=== PATIENT | male | born 1990 ===

== ENCOUNTER 2018-06-09 17:17 | Emergency (ER) | payer OTHER ==
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
[2018-06-09 17:52] LABS: ACETAMINOPHEN < 10 ug/mL
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
[2018-06-09 17:53] LABS: ANION GAP 15.2; CHLORIDE,CL 108 mmol/L (101-111); SODIUM,NA 138 mmol/L (135-145)
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
[2018-06-09] MEDS ORDERED: Lidocaine 1% 30 ML SDV INJECT ONE (18:22)
[2018-06-09] MEDS ORDERED: Diphtheria,Pertussis(Acell),Tetanus Vaccine 0.5 ML SDV IM ONE (18:22)
[2018-06-09] MEDS ORDERED: Bacitracin Oint 1 GM U/D Packet TOP ONE (19:22)
== END 2018-06-09 20:28 | disposition home or self-care (01) ==
LOC: DL.ED 17:17
DX: S06.0X9A Concussion with loss of consciousness of unspecified duration, initial encounter (principal); S02.2XXA Fracture of nasal bones, initial encounter for closed fracture; S02.19XB Other fracture of base of skull, initial encounter for open fracture; S00.12XA Contusion of left eyelid and periocular area, initial encounter; Y08.02XA Assault by strike by baseball bat, initial encounter
CPT/HCPCS: 12002; 12013; 36415; 70450; 70486; 72125; 73030; 80053; 80305; 81001; 85025; 90715; 99285; G0480

== ENCOUNTER 2020-12-06 09:41 | Emergency (ER) | payer OTHER ==
[2020-12-06] MEDS ORDERED: methylPREDNISolone Sodium Succinate 125 MG/2 ML SDV IM ONE (09:49)
--- NOTE | 2020-12-06 10:02 | EDM.PDOC ---
ED HPI GENERAL MEDICAL PROBLEM - General Chief Complaint: ENT Problem Stated Complaint: AMBULANCE Time Seen by Provider: 12/06/20 09:41 Source of Information: Reports: Patient, RN, RN Notes Reviewed History Limitations: Reports: No Limitations - History of Present Illness INITIAL COMMENTS - FREE TEXT/NARRATIVE: Tori is a 30 y/o male who presents to the ED via personal vehicle with complaints of neck and throat swelling and pain. The patient reports his symptoms began yesterday and have progressively worsened to the point he is unable to appropriately swallow his oral secretions due to swelling and pain. He denies recent illness, fever, shaking chills, headache, sinus congestion/pain, ear pressure/pain, chest pain, palpitations, shortness of breath, nausea, vomiting, or diarrhea. He does attest to transient cough, but feels it is due to difficulty swallowing his oral secretions. He has not taken any medications for his symptoms. He attests to smoking 1/4 pack of cigarettes per day; he denies alcohol or recreational drug use. Neck Pain Score (Numeric/FACES): 8 - Related Data Allergies Allergy/AdvReac Type Severity Reaction Status Date / Time No Known Allergies Allergy Verified 12/06/20 09:42 Home Meds: Home Meds . [No Known Home Meds] 06/09/18 [History] Past Medical History - Past Health History Medical/Surgical History: Denies Medical/Surgical History Social & Family History - Family History Family Medical History: No Pertinent Family History ED ROS ENT - Review of Systems Review Of Systems: Comprehensive ROS is negative, except as noted in HPI. ED EXAM, ENT - Physical Exam Exam: See Below Exam Limited By: No Limitations General Appearance: Alert, Mild Distress (Swollen, painful neck) Eye Exam: Bilateral Eye: EOMI, Normal Inspection, PERRL (3mm) Ears: Normal External Exam, Normal Canal, Hearing Grossly Normal, Normal TMs Nose: Normal Inspection, Normal Mucousa, No Blood Mouth/Throat: Normal Gums, Normal Lips, Muffled Voice, Pharyngeal Erythema (To left), Throat Pain, Throat Swelling (To left), Tonsillar Erythema (To left), Tonsillar Exudates (To left), Tonsillar Swelling (To left). No: Tongue Swelling, Uvular Deviation, Uvular Edema Head: Atraumatic, Normocephalic Neck: Limited Range of Motion (Due to swelling), Tender Lateral (To left anterior), Other (Swelling to left anterior neck) Respiratory/Chest: No Respiratory Distress, Lungs Clear, Normal Breath Sounds, No Accessory Muscle Use, Chest Non-Tender Cardiovascular: Normal Peripheral Pulses, Regular Rate, Rhythm, No Edema, No Gallop, No JVD, No Murmur, No Rub GI/Abdominal: Normal Bowel Sounds, Soft, Non-Tender, No Distention, No Abnormal Bruit, No Mass (Male) Exam: Deferred Rectal (Males) Exam: Deferred Back: Normal Inspection, Full Range of Motion Extremities: Normal Inspection, Normal Range of Motion, Non-Tender, No Pedal Edema, Normal Capillary Refill Neurological: Alert, Oriented, CN II-XII Intact, Normal Cognition, Normal Gait, No Motor/Sensory Deficits Psychiatric: Normal Affect, Normal Mood Skin: Warm, Dry, Intact, Normal Color, No Rash. No: Cyanosis, Ecchymosis, Erythema, Jaundice, Mottled, Pallor, Petechiae Course - Vital Signs Last Recorded V/S: Last Vital Signs Temp 98.3 F 12/06/20 09:43 Pulse 99 12/06/20 09:43 Resp 18 12/06/20 09:43 BP 116/80 12/06/20 09:43 Pulse Ox 99 12/06/20 09:43 - Orders/Labs/Meds Labs: Laboratory Tests 12/06/20 12/06/20 12/06/20 Range/Units 11:29 11:29 11:29 WBC 7.6 (5.0-10.0) 10^3/uL RBC 4.30 L (4.6-6.2) 10^6/uL Hgb 12.9 L D (14.0-18.0) g/dL Hct 37.4 L (40.0-54.0) % MCV 87.0 (80-100) fL MCH 30.0 (27.0-34.0) pg MCHC 34.5 (33.0-35.0) g/dL Plt Count 224 (150-450) 10^3/uL Neut % (Auto) 81.5 H (42.2-75.2) % Lymph % (Auto) 8.2 L (20.5-50.1) % [place] % (Auto) 9.3 H (2-8) % Eos % (Auto) 0.7 L (1.0-3.0) % Baso % (Auto) 0.3 (0.0-1.0) % Sodium 136 (136-145) mmol/L Potassium 3.3 L (3.5-5.1) mmol/L Chloride 96 L (98-107) mmol/L Carbon Dioxide 28 (21-32) mmol/L Anion Gap 15.3 H (7-13) mEq/L BUN 8 (7-18) mg/dL Creatinine 0.63 L (0.70-1.30) mg/dL Est Cr Clr Drug Dosing 162.86 mL/min Estimated GFR (MDRD) > 60 BUN/Creatinine Ratio 12.7 (No establ ref range) Glucose 101 H (70-99) mg/dL Lactic Acid 0.8 (0.4-2.0) mmol/L Calcium 8.0 L (8.5-10.1) mg/dL Total Bilirubin 1.3 H (0.2-1.0) mg/dL AST 74 H (15-37) U/L ALT 77 H (16-63) U/L Alkaline Phosphatase 144 H (46-116) U/L C-Reactive Protein 14.6 H (0.0-0.9) mg/dL Total Protein 7.2 (6.4-8.2) g/dL Albumin 3.2 L (3.4-5.0) g/dL Globulin 4.0 Albumin/Globulin Ratio 0.80 SARS-CoV-2 RNA (JAMES) (NEGATIVE) 12/06/20 Range/Units 13:06 WBC (5.0-10.0) 10^3/uL RBC (4.6-6.2) 10^6/uL Hgb (14.0-18.0) g/dL Hct (40.0-54.0) % MCV (80-100) fL MCH (27.0-34.0) pg MCHC (33.0-35.0) g/dL Plt Count (150-450) 10^3/uL Neut % (Auto) (42.2-75.2) % Lymph % (Auto) (20.5-50.1) % [place] % (Auto) (2-8) % Eos % (Auto) (1.0-3.0) % Baso % (Auto) (0.0-1.0) % Sodium (136-145) mmol/L Potassium (3.5-5.1) mmol/L Chloride (98-107) mmol/L Carbon Dioxide (21-32) mmol/L Anion Gap (7-13) mEq/L BUN (7-18) mg/dL Creatinine (0.70-1.30) mg/dL Est Cr Clr Drug Dosing mL/min Estimated GFR (MDRD) BUN/Creatinine Ratio (No establ ref range) Glucose (70-99) mg/dL Lactic Acid (0.4-2.0) mmol/L Calcium (8.5-10.1) mg/dL Total Bilirubin (0.2-1.0) mg/dL AST (15-37) U/L ALT (16-63) U/L Alkaline Phosphatase (46-116) U/L C-Reactive Protein (0.0-0.9) mg/dL Total Protein (6.4-8.2) g/dL Albumin (3.4-5.0) g/dL Globulin Albumin/Globulin Ratio SARS-CoV-2 RNA (JAMES) Negative (NEGATIVE) Meds: Medications Discontinued Medications Generic Name Dose Route Start Last Admin Trade Name Freq PRN Reason Stop Dose Admin Amoxicillin/Clavulanate Potassium 1 tab 12/06/20 13:02 12/06/20 13:20 Amoxicillin/Clavulanate K 875-125 Mg Tab PO 12/06/20 13:03 1 tab ONETIME ONE Administration Clindamycin Phosphate 600 mg/ 104 mls @ 200 mls/hr 12/06/20 12:49 12/06/20 13:20 Sodium Chloride IV 12/06/20 13:20 Not Given ONETIME ONE Iopamidol 100 ml 12/06/20 11:05 12/06/20 11:06 Iopamidol 612 Mg/Ml 100 Ml Bottle IVPUSH 12/06/20 11:06 75 ml ONETIME ONE Administration Methylprednisolone Sodium Succinate 125 mg 12/06/20 09:49 12/06/20 10:16 Methylprednisolone Sodium Succinate 125 Mg/2 Ml Sdv IM 12/06/20 09:50 125 mg ONETIME ONE Administration - Radiology Interpretation Free Text/Narrative:: [facility] Final Radiology Report Call: [phone] assistance Online chat: [email or web address] Name: TORI MALONEY Age: 30Years M Date: 12/06/2020 SSN: -- : 1990 Study: CT SOFT TISSUE NECK W CONT Requesting Physician: Dominique Hendricks Images: [phone] Addl Studies: Provided Clinical History: Swelling to left neck, extends into posterior oropharynx Contrast: With Contrast Medium: Isovue 300 Contrast Amount: 75 mL Contrast Method: Intravenous (IV) Page 1 of 2 PROCEDURE INFORMATION: Exam: CT Neck With Contrast Exam date and time: 12/06/2020 10:51 AM Age: 30 years old Clinical indication: Mass, lump, or swelling in neck; Left; Additional info: Swelling to left neck, extends into posterior oropharynx TECHNIQUE: Imaging protocol: Computed tomography images of the neck with contrast. Radiation optimization: All CT scans at this facility use at least one of these dose optimization techniques: automated exposure control; mA and/or kV adjustment per patient size (includes targeted exams where dose is matched to clinical indication); or iterative reconstruction. Contrast material: ISOVUE 300; Contrast volume: 75 ml; Contrast route: INTRAVENOUS (IV); COMPARISON: CT Max Facial Sinus wo Cont 06/09/2018 5:20 PM FINDINGS: Nasopharynx: Unremarkable. Oropharynx: There is enlargement noted of the left tonsillar pillar subtle enhancement but no evidence of a fluid collection. Soft tissue swelling and edema extends into the oropharynx with effacement of the left vallecular and mild displacement of the airway to the right. There is severe narrowing of the right piriform sinus. Hypopharynx: See "Soft tissues" finding. Larynx: Unremarkable. Normal epiglottis. Retropharyngeal space: Unremarkable. Submandibular/Parotid glands: Normal. Glands are normal in size. Thyroid: Normal. No enlarged or calcified nodules. Lymph nodes: Numerous lymph nodes are seen throughout the neck measuring up to 1 cm. Trachea: Visualized trachea is unremarkable. Lungs: Unremarkable as visualized. Bones/joints: Unremarkable. No acute fracture. Soft tissues: Inflammatory changes seen within the left submandibular soft tissues likely a cellulitis. IMPRESSION: 1. Enlargement of the left tonsillar pillar with edema extending as far inferiorly as the left piriform sinus subtotally effacing the piriformis sinus and effacing the left vallecular with subtle mass effect of the airway to the right. 2. Inflammatory changes in the left submandibular soft tissues. 3. No evidence of a fluid collection is present to suggest an abscess. 4. Numerous lymph nodes the largest which is cm. Thank you for allowing us to participate in the care of your patient. Dictated and Authenticated by: Bijan Bowman MD 12/06/2020 12:43 PM Central Time ([place] & [place]) - Re-Assessments/Exams Free Text/Narrative Re-Assessment/Exam: 12/06/20 Strep swab negative. Will obtain CT neck, soft tissues while labs pending. Case discussed with Dr. Simons, ENT provider at [facility], who recommends Medrol Dose pack, Augmentin PO, and a COVID swab. COVID swab negative. Findings of examination, lab work, imaging, and discussion with Dr. Simons reviewed with patient. Will treat with Augmentin and Medrol Dose pack. Discussed supportive cares as well as red flag signs and symptoms which would warrant immediate reevaluation. Patient verbalized understanding and agreement with the plan of care. Departure - Departure Time of Disposition: 13:51 Disposition: Home, Self-Care 01 Condition: Fair Clinical Impression: Tonsillitis - Discharge Information *PRESCRIPTION DRUG MONITORING PROGRAM REVIEWED*: Not Applicable *COPY OF PRESCRIPTION DRUG MONITORING REPORT IN PATIENT KAILEY: Not Applicable Instructions: Tonsillitis, [id number] Referrals: PCP,None [Primary Care Provider] - Forms: ED Department Discharge Additional Instructions: Rx: Augmentin Rx: Medrol Dose Pack 1.) Return to the emergency department with any worsening symptoms, especially with one day of antibiotics. 2.) You may take ibuprofen (Advil/Motrin) 400mg every six hours, as pain and swelling persists. You may also take acetaminophen (Tylenol) 650mg every six hours, as pain persists. You may stagger these medications so you are receiving a dose every three hours. 3.) You may drink cold drinks to help with swelling, ice chips, popsicles, etc... 4.) Follow up with your primary care provider regarding today's visit in 3-5 days.
[2020-12-06] MEDS ORDERED: Iopamidol 612 MG/ML 100 ML Bottle IVPUSH ONE (11:05)
[2020-12-06 12:03] LABS: ANION GAP 15.3 mEq/L (7-13); CHLORIDE,CL 96 mmol/L (98-107); SODIUM,NA 136 mmol/L (136-145)
--- NOTE | 2020-12-06 12:44 | CT ---
PROCEDURE INFORMATION: Exam: CT Neck With Contrast Exam date and time: 12/06/2020 10:51 AM Age: 30 years old Clinical indication: Mass, lump, or swelling in neck; Left; Additional info: Swelling to left neck, extends into posterior oropharynx TECHNIQUE: Imaging protocol: Computed tomography images of the neck with contrast. Radiation optimization: All CT scans at this facility use at least one of these dose optimization techniques: automated exposure control; mA and/or kV adjustment per patient size (includes targeted exams where dose is matched to clinical indication); or iterative reconstruction. Contrast material: ISOVUE 300; Contrast volume: 75 ml; Contrast route: INTRAVENOUS (IV); COMPARISON: CT Max Facial Sinus wo Cont 06/09/2018 5:20 PM FINDINGS: Nasopharynx: Unremarkable. Oropharynx: There is enlargement noted of the left tonsillar pillar subtle enhancement but no evidence of a fluid collection. Soft tissue swelling and edema extends into the oropharynx with effacement of the left vallecular and mild displacement of the airway to the right. There is severe narrowing of the right piriform sinus. Hypopharynx: See "Soft tissues" finding. Larynx: Unremarkable. Normal epiglottis. Retropharyngeal space: Unremarkable. Submandibular/Parotid glands: Normal. Glands are normal in size. Thyroid: Normal. No enlarged or calcified nodules. Lymph nodes: Numerous lymph nodes are seen throughout the neck measuring up to 1 cm. Trachea: Visualized trachea is unremarkable. Lungs: Unremarkable as visualized. Bones/joints: Unremarkable. No acute fracture. Soft tissues: Inflammatory changes seen within the left submandibular soft tissues likely a cellulitis. IMPRESSION: 1. Enlargement of the left tonsillar pillar with edema extending as far inferiorly as the left piriform sinus subtotally effacing the piriformis sinus and effacing the left vallecular with subtle mass effect of the airway to the right. 2. Inflammatory changes in the left submandibular soft tissues. 3. No evidence of a fluid collection is present to suggest an abscess. 4. Numerous lymph nodes the largest which is cm.
[2020-12-06] MEDS ORDERED: Clindamycin Phosphate 600 MG in Sodium Chloride 0.9% 100 ML IV ONE (12:49)
[2020-12-06] MEDS ORDERED: Amoxicillin/Clavulanate K 875-125 MG Tab PO ONE (13:02)
== END 2020-12-06 14:30 | disposition home or self-care (01) ==
LOC: DL.ED 09:41
DX: J03.90 Acute tonsillitis, unspecified (principal); F17.210 Nicotine dependence, cigarettes, uncomplicated; Z20.822 Contact with and (suspected) exposure to COVID-19
CPT/HCPCS: 36415; 70491; 80053; 83605; 85025; 86140; 87081; 87430; 87635; 96372; 99283; 99284; A9270; J2930; Q9967; U0002

== ENCOUNTER 2021-05-07 05:18 | Emergency (ER) | payer OTHER ==
--- NOTE | 2021-05-07 05:16 | EDM.PDOC ---
<Shivam Cerda - Last Filed: 05/07/21 06:41> ED HPI GENERAL MEDICAL PROBLEM - General Chief Complaint: Upper Extremity Injury/Pain Stated Complaint: SPLK - AMBULANCE Time Seen by Provider: 05/07/21 05:02 Source of Information: Reports: Patient History Limitations: Reports: No Limitations, Intoxication (Patient admits to "drinking a lot") - History of Present Illness INITIAL COMMENTS - FREE TEXT/NARRATIVE: This 30 yo male patient was brought to the ED by [facility] due to right forearm, wrist and hand pain. The patient reports he punched a window yesterday and got his hand slammed in a door today. The patient admits to drinking a lot of alcohol due to the pain in his right arm. The patient reports he has not done any drugs since he got out of rehab. Onset Date: 05/05/21 Duration: Day(s):, Constant Location: Reports: Upper Extremity, Right Quality: Reports: Ache, Sharp Severity: Severe Improves with: Reports: None Worsens with: Reports: None Context: Reports: Other Associated Symptoms: Reports: No Other Symptoms - Related Data Allergies Allergy/AdvReac Type Severity Reaction Status Date / Time No Known Allergies Allergy Verified 05/07/21 05:10 Home Meds: Home Meds . [No Known Home Meds] 06/09/18 [History] Past Medical History - Past Health History Medical/Surgical History: Denies Medical/Surgical History Social & Family History - Family History Family Medical History: No Pertinent Family History Review of Systems - Review of Systems Review Of Systems: Comprehensive ROS is negative, except as noted in HPI. ED EXAM, GENERAL - Physical Exam Exam: See Below Exam Limited By: No Limitations General Appearance: Alert, WD/WN, Moderate Distress Eye Exam: Bilateral Eye: EOMI, Normal Inspection, PERRL Ears: Normal External Exam, Normal Canal, Hearing Grossly Normal, Normal TMs Nose: Normal Inspection, Normal Mucosa, No Blood Throat/Mouth: Normal Inspection, Normal Lips, Normal Teeth, Normal Gums, Normal Oropharynx, Normal Voice, No Airway Compromise Head: Atraumatic, Normocephalic Neck: Normal Inspection, Supple, Non-Tender, Full Range of Motion Respiratory/Chest: No Respiratory Distress, Lungs Clear, Normal Breath Sounds, No Accessory Muscle Use, Chest Non-Tender Cardiovascular: Normal Peripheral Pulses, Regular Rate, Rhythm, No Edema, No Gallop, No JVD, No Murmur, No Rub GI/Abdominal: Normal Bowel Sounds, Soft, Non-Tender, No Organomegaly, No Distention, No Abnormal Bruit, No Mass (Male) Exam: Deferred Rectal (Males) Exam: Deferred Back Exam: Normal Inspection, Full Range of Motion, NT Extremities: Arm Pain (right forearm, wrist and hand pain) Neurological: Alert, Oriented, CN II-XII Intact Psychiatric: Normal Affect, Normal Mood Skin Exam: Warm, Dry, Intact, Normal Color, No Rash Lymphatic: No Adenopathy Course - Radiology Interpretation Free Text/Narrative:: [facility] Final Radiology Report Call: [phone] assistance Online chat: [email or web address] Name: TORI MALONEY Age: 30Years M Date: 05/07/2021 SSN: -- : 1990 Study: CR HAND COMP MIN 3V RT Requesting Physician: Shivam Cerda Images: 4 Addl Studies: Provided Clinical History: Right hand, wrist and forearm pain Contrast: Contrast Medium: Contrast Amount: Contrast Method: CONFIDENTIALITY STATEMENT This report is intended only for use by the referring physician, and only in accordance with law. If you received this in error, call [phone]. Page 1 of 1 PROCEDURE INFORMATION: Exam: XR Right Hand Exam date and time: 05/07/2021 5:40 AM Age: 30 years old Clinical indication: Other: No new trauma--muscle spasm; Additional info: Right hand, wrist and forearm pain TECHNIQUE: Imaging protocol: XR Right hand. Views: 3 or more views. COMPARISON: CR Forearm 2V Rt 05/07/2021 5:37 AM FINDINGS: Bones/joints: Old well-healed fracture of the 5th metacarpal bone. No acute fracture or dislocation. Soft tissues: Normal. IMPRESSION: 1. Old well-healed fracture of the 5th metacarpal bone 2. No acute fracture or dislocation. Thank you for allowing us to participate in the care of your patient. Dictated and Authenticated by: Warner Amezquita MD 05/07/2021 6:34 AM Central Time ([place] & [place]) [facility] Final Radiology Report Call: [phone] assistance Online chat: [email or web address] Name: TORI MALONEY Age: 30Years M Date: 05/07/2021 SSN: -- : 1990 Study: CR FOREARM 2V RT Requesting Physician: Shivam Cerda Images: 3 Addl Studies: Provided Clinical History: Right hand, wrist and forearm pain Contrast: Contrast Medium: Contrast Amount: Contrast Method: CONFIDENTIALITY STATEMENT This report is intended only for use by the referring physician, and only in accordance with law. If you received this in error, call [phone]. Page 1 of 1 PROCEDURE INFORMATION: Exam: XR Right Forearm Exam date and time: 05/07/2021 5:37 AM Age: 30 years old Clinical indication: Other: Pain--spasm; Additional info: Right hand, wrist and forearm pain TECHNIQUE: Imaging protocol: XR Right forearm. Views: 2 views. COMPARISON: No relevant prior studies available. FINDINGS: Bones/joints: Normal. Soft tissues: Normal. IMPRESSION: No acute findings. Thank you for allowing us to participate in the care of your patient. Dictated and Authenticated by: Warner Amezquita MD 05/07/2021 6:34 AM Central Time ([place] & [place]) Departure - Departure Disposition: Home, Self-Care 01 Clinical Impression: Arm pain Qualifiers: Laterality: right Qualified Code(s): M79.601 - Pain in right arm - Discharge Information Forms: ED Department Discharge Additional Instructions: Use tylenol and Ibuprofen for pain as needed. Ice and rest your injury. If any new symptoms or concerns develop contact your primary care facility or return to the ER. Sepsis Event Note (ED) - Evaluation Sepsis Screening Result: No Definite Risk <Alejandro Figueroa - Last Filed: 05/07/21 07:33> Course - Vital Signs Last Recorded V/S: Last Vital Signs Temp 99.1 F 05/07/21 05:08 Pulse 114 H 05/07/21 06:06 Resp 12 05/07/21 06:06 BP 158/96 H 05/07/21 06:06 Pulse Ox 98 12/19/21 06:06 - Orders/Labs/Meds Orders: Active Orders 24 hr Category Date Time Status DRUG SCREEN URINE BIORAD [URCHEM] Stat Lab 05/07/21 05:09 Ordered UA RFX LUDIN AND CULT IF INDIC [URIN] Urgent Lab 05/07/21 05:09 Ordered DME for Discharge [COMM] Urgent Oth 05/07/21 06:40 Ordered Labs: Laboratory Tests 05/07/21 05/07/21 Range/Units 05:15 05:15 WBC 5.9 (5.0-10.0) 10^3/uL RBC 4.93 (4.6-6.2) 10^6/uL Hgb 14.7 D (14.0-18.0) g/dL Hct 42.8 (40.0-54.0) % MCV 86.8 (80-100) fL MCH 29.8 (27.0-34.0) pg MCHC 34.3 (33.0-35.0) g/dL Plt Count 250 (150-450) 10^3/uL Neut % (Auto) 40.8 L (42.2-75.2) % Lymph % (Auto) 51.8 H (20.5-50.1) % [place] % (Auto) 6.7 (2-8) % Eos % (Auto) 0.0 L (1.0-3.0) % Baso % (Auto) 0.7 (0.0-1.0) % Sodium 141 (136-145) mmol/L Potassium 3.2 L (3.5-5.1) mmol/L Chloride 103 (98-107) mmol/L Carbon Dioxide 22 (21-32) mmol/L Anion Gap 19.2 H (7-13) mEq/L BUN 6 L (7-18) mg/dL Creatinine 0.77 (0.70-1.30) mg/dL Est Cr Clr Drug Dosing 137.73 mL/min Estimated GFR (MDRD) > 60 BUN/Creatinine Ratio 7.8 (No establ ref range) Glucose 105 H (70-99) mg/dL Calcium 8.4 L (8.5-10.1) mg/dL Total Bilirubin 0.4 (0.2-1.0) mg/dL AST 19 (15-37) U/L ALT 35 (16-63) U/L Alkaline Phosphatase 132 H (46-116) U/L Total Protein 7.9 (6.4-8.2) g/dL Albumin 4.1 (3.4-5.0) g/dL Globulin 3.8 Albumin/Globulin Ratio 1.1 Ethyl Alcohol 275 (0) mg/dL Meds: Medications Discontinued Medications Generic Name Dose Route Start Last Admin Trade Name Farhana PRN Reason Stop Dose Admin Hydromorphone HCl 0.5 mg 05/07/21 05:19 05/07/21 05:22 Hydromorphone 0.5 Mg/0.5 Ml Syringe IVPUSH 05/07/21 05:20 0.5 mg ONETIME ONE Administration Sodium Chloride 1,000 mls @ 999 mls/hr 05/07/21 05:17 05/07/21 05:22 Normal Saline IV 05/07/21 06:17 999 mls/hr .BOLUS ONE Administration Lorazepam 1 mg 05/07/21 05:47 Lorazepam 2 Mg/Ml Sdv IVPUSH 05/07/21 05:48 ONETIME ONE - Re-Assessments/Exams Free Text/Narrative Re-Assessment/Exam: 05/07/21 07:30 I assumed care from Shivam RICHTER at shift change. The pt is awake and alert and in no apparent distress. He would like to be discharged. I discussed his exam adn exray with him and informed him of the findings. Departure - Departure Time of Disposition: 07:31 Condition: Good - Discharge Information *PRESCRIPTION DRUG MONITORING PROGRAM REVIEWED*: Not Applicable *COPY OF PRESCRIPTION DRUG MONITORING REPORT IN PATIENT KAILEY: Not Applicable Sepsis Event Note (ED) - Focused Exam Vital Signs: Vital Signs Temp Pulse Resp BP Pulse Ox 05/07/21 06:06 114 H 12 158/96 H 98 05/07/21 05:59 100 05/07/21 05:55 88 L 05/07/21 05:54 112 H 80 L 05/07/21 05:08 99.1 F 128 H 28 H 158/98 H 97
[~2021-05-07 05:18] MED LIST: Sodium Chloride 0.9% 1,000 ML IV ONE
[2021-05-07] MEDS ORDERED: HYDROmorphone 0.5 MG/0.5 ML Syringe IVPUSH ONE (05:19)
[2021-05-07 05:43] LABS: ANION GAP 19.2 mEq/L (7-13); CHLORIDE,CL 103 mmol/L (98-107); SODIUM,NA 141 mmol/L (136-145)
[2021-05-07] MEDS ORDERED: LORazepam 2 MG/ML SDV IVPUSH ONE (05:47)
--- NOTE | 2021-05-07 06:34 | CR ---
PROCEDURE INFORMATION: Exam: XR Right Hand Exam date and time: 05/07/2021 5:40 AM Age: 30 years old Clinical indication: Other: No new trauma--muscle spasm; Additional info: Right hand, wrist and forearm pain TECHNIQUE: Imaging protocol: XR Right hand. Views: 3 or more views. COMPARISON: CR Forearm 2V Rt 05/07/2021 5:37 AM FINDINGS: Bones/joints: Old well-healed fracture of the 5th metacarpal bone. No acute fracture or dislocation. Soft tissues: Normal. IMPRESSION: 1. Old well-healed fracture of the 5th metacarpal bone 2. No acute fracture or dislocation.
--- NOTE | 2021-05-07 06:35 | CR ---
PROCEDURE INFORMATION: Exam: XR Right Forearm Exam date and time: 05/07/2021 5:37 AM Age: 30 years old Clinical indication: Other: Pain--spasm; Additional info: Right hand, wrist and forearm pain TECHNIQUE: Imaging protocol: XR Right forearm. Views: 2 views. COMPARISON: No relevant prior studies available. FINDINGS: Bones/joints: Normal. Soft tissues: Normal. IMPRESSION: No acute findings.
== END 2021-05-07 07:40 | disposition home or self-care (01) ==
LOC: DL.ED 05:18
DX: M79.601 Pain in right arm (principal)
CPT/HCPCS: 36415; 73090; 73130; 80053; 80307; 85025; 96374; 99284; J1170; J7030

== ENCOUNTER 2021-07-02 06:57 | Emergency (ER) | payer OTHER ==
[2021-07-02] MEDS ORDERED: diphenhydrAMINE 50 MG/ML SDV IVPUSH ONE (07:16)
[2021-07-02] MEDS ORDERED: Famotidine 20 MG/2 ML SDV IVPUSH ONE (07:16)
[2021-07-02] MEDS ORDERED: methylPREDNISolone Sodium Succinate 125 MG/2 ML SDV IVPUSH ONE (07:16)
[2021-07-02] MEDS ORDERED: Sodium Chloride 0.9% 1,000 ML IV ONE (07:16)
== END 2021-07-02 10:00 | disposition home or self-care (01) ==
LOC: DL.ED 06:57
DX: L50.9 Urticaria, unspecified (principal)
CPT/HCPCS: 96374; 96375; 99283-25; J1200; J2930; J3490; J7030

== ENCOUNTER 2021-09-23 11:43 | Emergency (ER) | payer OTHER ==
[2021-09-23] MEDS ORDERED: Sodium Chloride 0.9% 10 ML Syringe FLUSH PRN (12:07)
[2021-09-23] MEDS ORDERED: MVI, Adult with Vitamin K 10 ML, Thiamine 100 MG, Folic Acid 1 MG in Lactated Ringers 1... IV ONE ×4 (12:08)
[2021-09-23 12:42] LABS: AMPHETAMINES,URINE POSITIVE (NEGATIVE); BARBITURATES,URINE NEGATIVE (NEGATIVE); BENZODIAZEPINE,URINE NEGATIVE (NEGATIVE); MDMA (ECSTASY), URINE POSITIVE (NEGATIVE); METHADONE,URINE NEGATIVE (NEGATIVE); METHAMPHETAMINES,URINE POSITIVE (NEGATIVE); OPIATES,URINE NEGATIVE (NEGATIVE); OXYCODONE,URINE NEGATIVE (NEGATIVE); PHENCYCLIDINE,URINE NEGATIVE (NEGATIVE); TCA,URINE NEGATIVE (NEGATIVE)
[2021-09-23 12:57] LABS: ANION GAP 19.4 mEq/L (7-13); CHLORIDE,CL 100 mmol/L (98-107); SODIUM,NA 140 mmol/L (136-145)
== END 2021-09-23 15:26 | disposition home or self-care (01) ==
LOC: DL.ED 11:43
DX: S22.32XA Fracture of one rib, left side, initial encounter for closed fracture (principal); K70.9 Alcoholic liver disease, unspecified; F15.10 Other stimulant abuse, uncomplicated; F16.10 Hallucinogen abuse, uncomplicated; X58.XXXA Exposure to other specified factors, initial encounter
CPT/HCPCS: 36415; 71100-LT; 80053; 80305-QW; 80307; 81001; 82150; 83690; 85025; 86140; 96365; 99284; 99284-25; J3411; J3490; J7120

== ENCOUNTER 2021-10-23 00:45 | Emergency (ER) | payer OTHER ==
[2021-10-23] MEDS ORDERED: LORazepam 2 MG/ML SDV IVPUSH ONE (00:47)
[2021-10-23] MEDS ORDERED: MVI, Adult with Vitamin K 10 ML, Folic Acid 1 MG, Thiamine 100 MG in Lactated Ringers 1... IV ONE ×4 (00:49)
[2021-10-23 01:36] LABS: ANION GAP 15.7 mEq/L (7-13); CHLORIDE,CL 108 mmol/L (98-107); SODIUM,NA 144 mmol/L (136-145)
[2021-10-23 01:38] LABS: ACETAMINOPHEN 0 ug/mL (10-30 (Therapeutic))
[2021-10-23 01:40] LABS: AMPHETAMINES,URINE NEGATIVE (NEGATIVE); BARBITURATES,URINE NEGATIVE (NEGATIVE); BENZODIAZEPINE,URINE NEGATIVE (NEGATIVE); MDMA (ECSTASY), URINE NEGATIVE (NEGATIVE); METHADONE,URINE NEGATIVE (NEGATIVE); METHAMPHETAMINES,URINE POSITIVE (NEGATIVE); OPIATES,URINE NEGATIVE (NEGATIVE); OXYCODONE,URINE NEGATIVE (NEGATIVE); PHENCYCLIDINE,URINE NEGATIVE (NEGATIVE); TCA,URINE NEGATIVE (NEGATIVE)
== END 2021-10-23 02:20 | disposition home or self-care (01) ==
LOC: DL.ED 00:45
DX: F41.9 Anxiety disorder, unspecified (principal); F15.10 Other stimulant abuse, uncomplicated; F10.10 Alcohol abuse, uncomplicated; F17.210 Nicotine dependence, cigarettes, uncomplicated; Z20.822 Contact with and (suspected) exposure to COVID-19; Y90.8 Blood alcohol level of 240 mg/100 ml or more
CPT/HCPCS: 36415; 80053; 80143; 80179; 80305; 80307; 81001; 82140; 82150; 83605; 83690; 83735; 85025; 85610; 87040; 87635; 96365; 96375; 99284; J2060; J3411; J7120; J3490; U0002

== ENCOUNTER 2022-01-12 11:38 | Emergency (ER) | payer OTHER | END 2022-01-12 15:17 | disposition left against medical advice (07) | LOC: DL.ED 11:38 | DX: Z53.21 Procedure and treatment not carried out due to patient leaving prior to being seen by health care provider (principal) ==

== ENCOUNTER 2022-01-12 23:03 | Emergency (ER) | payer OTHER ==
[2022-01-12 23:48] LABS: ANION GAP 12.5 mEq/L (7-13)
== END 2022-01-13 01:28 | disposition home or self-care (01) ==
LOC: DL.ED 23:03
DX: S40.011A Contusion of right shoulder, initial encounter (principal); W19.XXXA Unspecified fall, initial encounter
CPT/HCPCS: 36415; 73030-RT; 80053; 80307; 85025; 85379; 93971; 99283; 99284